=== PATIENT | male | born 1960 | race Caucasian/White ===

== ENCOUNTER 2021-06-20 09:39 | Emergency (ER) | payer OTHER, SELFPAY ==
[2021-06-20 09:46] VITALS: BP 143/86; PULSE 95; RESP 20; TEMP 36.9; O2SAT 99
--- NOTE | 2021-06-20 09:46 | ECG_ITS ---
Measurements Intervals [place] Rate: 83 P: 59 NM: 152 QRS: 65 QRSD: 98 T: 55 QT: 369 QTc: 435 Interpretive Statements SINUS RHYTHM DIFFUSE J-POINT ELEVATION CONSIDER EARLY REPOLARIZATION, PERICARDITIS, MYOCARDIAL INJURY BORDERLINE ECG NO PREVIOUS ECG AVAILABLE FOR COMPARISON Electronically Signed On 06-20-2021 11:35:57 CDT by John Paul Fitch M.D.
--- NOTE | 2021-06-20 09:47 | ED.SKABFB ---
HPI - Skin/Abscess/Foreign Bdy General Chief complaint: Wound/Laceration Stated complaint: Laceration to Heat Time Seen by Provider: 06/20/21 09:42 Source: patient Mode of arrival: ambulatory Limitations: no limitations History of Present Illness HPI narrative: Mr. Rose is a 61-year-old male patient presenting to the clinic today with complaints of a head laceration. He reports that he had a syncopal episode when getting up off the commode this morning around 0400 after doing his business. States he woke up on the floor and hit his head against the tile. Has a long vertical laceration to the right side of his forehead and reports pain only to this area states that he has a history of hyponatremia. He receives monthly infusions for the hyponatremia. Is seeing a kidney specialist for this. Denies any chest pain, shortness of breath, or neck pain. Related Data Home Medications Medication Instructions Recorded Confirmed amlodipine 10 mg PO DAILY 06/20/21 06/20/21 simvastatin 10 mg PO DAILY 06/20/21 06/20/21 tadalafil 20 mg PO DAILY 06/20/21 06/20/21 Allergies Allergy/AdvReac Type Severity Reaction Status Date / Time No Known Allergies Allergy Verified 06/20/21 09:49 Review of Systems Review of Systems: Pertinent positives per HPI. Patient denies any fever, chills, rash, headache, visual changes, dizziness, cough, runny nose, sore throat, shortness of breath, chest pain, palpitations, nausea, vomiting, diarrhea, constipation, abdominal pain, or any urinary issues. PMFSH Comments At the time of my signature, I reviewed and agree with the nursing past medical, surgical, social, and family history. There is no relevant family history pertinent to the patient complaint. Exam Narrative: General: Well-developed, well nourished, in no apparent distress Head: Normocephalic, 10 cm vertical laceration to the right side of his forehead, 2 cm vertical superficial laceration under his nose, bleeding controlled. Cardio: Regular rate and rhythm, s1 and s2 normal, no murmur appreciated. Resp: Clear to auscultation bilaterally, no rhonchi, rales, wheezing or rubs. General: Well-developed, well nourished, in no apparent distress Musculoskeletal: No deformity, non-tender to palpation, grossly normal range of motion, muscle strength strong and equal, peripheral pulse strong, no edema, no cyanosis, normal gait and station Course Course Emergency Course: Portions of this record may have been created with voice recognition software. Level of Care: Express Care Visit Vital Signs Vital signs: Vital Signs Temperature 36.9 C 06/20/21 09:46 Pulse Rate 95 06/20/21 09:46 Respiratory Rate 20 06/20/21 09:46 Blood Pressure 143/86 H 06/20/21 09:46 Pulse Oximetry 99 06/20/21 09:46 Temperature 36.9 C 06/20/21 09:46 Pulse Rate 95 06/20/21 09:46 Respiratory Rate 20 06/20/21 09:46 Blood Pressure 143/86 H 06/20/21 09:46 Pulse Oximetry 99 06/20/21 09:46 Vital signs reviewed Transfer Transfered to: [facility] Transportation: Other (Private car) Transfer rationale: Syncopal episode/head injury/laceration Accepting physician: Dr. Irvin Transfer comments: Patient is conscious alert and oriented x4, will allow mother to drive patient to the ED. MDM - Skin/Abscess/Foreign Bdy MDM Narrative Medical decision making narrative: At the time of assessment patient is resting comfortably on the exam table. Reports a syncopal episode that occurred around 4 this morning. Has history of hyponatremia. EKG normal sinus rhythm heart rate of 83 without ectopy in the clinic. Has a 10 cm vertical laceration to the right side of the forehead as well as a 2 cm superficial laceration just below his nose. Due to mechanism of injury/syncopal episode, I recommend evaluation in the emergency room to obtain labs to rule out hyponatremia/ other causes of syncopal episode. Syncopal episode likely caused by vasovagal response. Demetria
== END 2021-06-20 10:06 | disposition short-term general hospital (02) ==
PROVIDERS: Emergency Provider Nurse Practitioner Family; PCP Family Medicine
DX: S01.81XA Laceration without foreign body of other part of head, initial encounter (principal); W19.XXXA Unspecified fall, initial encounter; R55 Syncope and collapse
CPT/HCPCS: 93005; 99213; G0463